=== PATIENT | male | born 1950 | race African-American/Black ===

== ENCOUNTER → 2018-03-29 | Outpatient (CLI) | payer OTHER ==
[~2018-03-29] MED LIST: IOHEXOL 240 MG/ML 50ML VIAL. ONE; IOHEXOL 240 MG/ML 50ML VIAL. PO ONE; IOHEXOL 300 MG/ML 75 ML VIAL. IV ONE
[2018-03-29 17:48] LABS: CREATININE 0.8 mg/dL (0.7-1.3); GFR 117.4
--- NOTE | 2018-03-29 18:41 | RAD ---
Examination: CT of the abdomen pelvis with oral and IV contrast HISTORY: History of abdominal pain for 3 to 4 months TECHNIQUE: Axial CT images of the abdomen pelvis were performed with oral and IV contrast. Coronal and sagittal reformats are performed Exposure: One or more of the following individualized dose reduction techniques were utilized for this examination: 1. Automated exposure control 2. Adjustment of the mA and/or kV according to patient size 3. Use of iterative reconstruction technique FINDINGS: The bibasilar lungs are clear. No evidence of free air identified in the abdomen. There is mild decreased attenuation noted in the liver likely hepatic steatosis. The visualized spleen, adrenals, grossly appears unremarkable. The visualized pancreas grossly appears unremarkable. The gallbladder is mildly distended. There is a 1.7 cm gallstone identified within the gallbladder. The stomach is mildly distended. Small bowel is nondilated. The appendix is not well-visualized. Feces and gas noted in the colon. Urinary bladder is mildly distended. There is mild thickened appearance of the urinary bladder wall. The bilateral kidneys enhance symmetrically. No evidence of hydronephrosis. There is bony fusion of the bilateral sacroiliac joint superiorly. Moderate degenerative changes lumbar spine. Schmorl's node identified superior endplate of S1. There is mild sclerosis identified at the L5-S1 vertebral levels. IMPRESSION: 1. Mild thickened appearance of the wall of the urinary bladder, nonspecific, could be mild cystitis. Correlate with urine analysis. 2. Cholelithiasis. 3. Hepatic steatosis. 4. Bony fusion of the bilateral sacroiliac joints. Correlate with prior history of sacroiliitis. Electronically signed by: Bret Huerta MD (03/29/2018 6:37 PM) [facility]
== END | disposition home or self-care (01) ==
LOC: CT 16:17
PROVIDERS: ATTEND Family Medicine
DX: K80.20 Calculus of gallbladder without cholecystitis without obstruction (principal); K76.0 Fatty (change of) liver, not elsewhere classified; M53.3 Sacrococcygeal disorders, not elsewhere classified; N32.89 Other specified disorders of bladder; K31.89 Other diseases of stomach and duodenum; I10 Essential (primary) hypertension
CPT/HCPCS: 36415; 74177; 82565; Q9966; Q9967